=== PATIENT | female | born 1970 | race Caucasian/White ===

== ENCOUNTER 2016-09-13 18:23 | Emergency (ER) | payer SELFPAY ==
--- NOTE | 2016-09-13 21:29 | ED ---
Back Pain - HPI Summary HPI Summary: 46F presents with acute on chronic back pain. She was lifting a patient at work when he placed all his weight on her. She states it aggravated her chronic pain but there is nothing different about it beside intensity. She has nerve pain down her left leg that is unchanged. She denies any loss of bowel or bladder. She denies any saddle anesthesia. The location of the pain is where it always is. She already has treatment plan with primary. She is here because work wanted her to get checked out. - History of Current Complaint Chief Complaint: EDBackInjuryPain Stated Complaint: BACK INJURY Time Seen by Provider: 09/13/16 21:02 Pain Intensity: 5 - Allergies/Home Medications Allergies/Adverse Reactions: Allergies Allergy/AdvReac Type Severity Reaction Status Date / Time No Known Allergies Allergy Verified 09/13/16 21:07 PMH/Surg Hx/FS Hx/Imm Hx Endocrine/Hematology History: Denies: Hx Anticoagulant Therapy Respiratory History: Denies: Hx Asthma Infectious Disease History: No Infectious Disease History: Denies: Traveled Outside the [place] in Last 30 Days - Family History Known Family History: Positive: Cardiac Disease - Social History Alcohol Use: None Substance Use Type: Reports: None Smoking Status (MU): Never Smoked Tobacco Review of Systems Negative: Fever Negative: Chest Pain Negative: Shortness Of Breath Positive: Myalgia - back pain All Other Systems Reviewed And Are Negative: Yes Physical Exam Triage Information Reviewed: Yes Vital Signs On Initial Exam: Initial Vitals Temp Pulse Resp BP Pulse Ox 98.1 F 72 20 130/81 100 09/13/16 18:48 09/13/16 18:48 09/13/16 18:48 09/13/16 18:48 09/13/16 18:48 Vital Signs Reviewed: Yes Appearance: Positive: Well-Appearing Skin: Positive: Warm, Dry Head/Face: Positive: Normal Head/Face Inspection Eyes: Positive: Normal, Conjunctiva Clear Respiratory/Lung Sounds: Positive: Clear to Auscultation, Breath Sounds Present Cardiovascular: Positive: Normal, RRR Musculoskeletal: Positive: Strength/ROM Intact - back, Other - pos SLR left, tender lower back and to left side Diagnostics - Vital Signs Vital Signs Temp Pulse Resp BP Pulse Ox 09/13/16 20:58 98.9 F 66 16 146/99 100 09/13/16 18:50 98.2 F 71 20 130/81 100 09/13/16 18:48 98.1 F 72 20 130/81 100 - Laboratory Lab Statement: Any lab studies that have been ordered have been reviewed, and results considered in the medical decision making process. Back Pain Course/Dx - Course Course Of Treatment: 46F presents with acute on chronic back pain. nothing different except intensity. did have to hold all of patients weight today. has treatment plan with primary. has had multiple imaging studies done and has follow up with neurosurgery the end of the month. discussed and patient does not want imaging. told to continue treatment plan with primary. patient understands and agrees with plan - Diagnoses Differential Diagnosis/HQI/PQRI: Positive: Fracture, Herniated Disc, Strain, Sprain Provider Diagnoses: Back pain Discharge - Discharge Plan Condition: Good Disposition: HOME Patient Education Materials: Back Pain (ED) Forms: *Work Release Referrals: Dillon Burton [Primary Care Provider] - Additional Instructions: Take normal pain medication as prescribed Apply heat to area Follow up with neurosurgery Return to ED if unable to ambulate
[2016-09-13] MEDS ORDERED: Ketorolac INJ* 60 MG/2 ML VIAL IM ONE (21:34)
[2016-09-13] MEDS ORDERED: oxyCODONE/Acetamin 5/325 MG* TAB PO ONE (21:34)
[2016-09-13 22:03] VITALS: BP 135/90
== END 2016-09-13 22:02 | disposition home or self-care (01) ==
LOC: ED 18:23
DX: M54.9 Dorsalgia, unspecified (principal)
CPT/HCPCS: 96372; 99281; A9270-GY; J1885